=== PATIENT | female | born 1985 | race Two or more races ===

== ENCOUNTER 2020-08-14 16:03 | Emergency (ER) | payer OTHER ==
[~2020-08-14] VITALS: Ht 165.1 cm; Wt 83.9 kg
[2020-08-14] MEDS ORDERED: CLEOCIN HCL300 MG PO (20:25)
[2020-08-14] MEDS ORDERED: INTESTINEX680 M1 PO (20:25)
[2020-08-14] MEDS ORDERED: NASAL MIST126 ML NASAL ×2 (20:26→20:27)
[2020-08-14] MEDS ORDERED: NASAL MIST126 ML (20:28)
== END 2020-08-14 21:16 | disposition home or self-care (01) ==
LOC: ER 16:03
DX: L03.316 Cellulitis of umbilicus (principal)

== ENCOUNTER 2022-05-07 10:05 | Emergency (ER) | payer OTHER ==
[~2022-05-07] VITALS: Ht 165.1 cm; Wt 83.0 kg
[~2022-05-07 10:05] MED LIST: CLEOCIN HCL300 MG PO; INTESTINEX680 M1 PO; NASAL MIST126 ML; NASAL MIST126 ML NASAL
[2022-05-07] MEDS ORDERED: SULFAMETHOXAZOL20 ML PO (10:45)
[2022-05-07] MEDS ORDERED: MUPIROCIN15 GM TOP (10:46)
[2022-05-07] MEDS ORDERED: HIBICLENS118 ML TOP (15:24)
[2022-05-07] MEDS ORDERED: CENTANY30 GM TOP (15:24)
== END 2022-05-07 15:31 | disposition home or self-care (01) ==
LOC: ER 10:05
DX: L03.316 Cellulitis of umbilicus (principal); Z88.1 Allergy status to other antibiotic agents

== ENCOUNTER 2022-07-08 20:12 | Emergency (ER) | payer OTHER ==
[~2022-07-08] VITALS: Ht 165.1 cm; Wt 84.8 kg
[~2022-07-08 20:12] MED LIST changes: +CENTANY30 GM TOP; +HIBICLENS118 ML TOP; +MUPIROCIN15 GM TOP; +SULFAMETHOXAZOL20 ML PO
[2022-07-08] MEDS ORDERED: TOPAMAX50 MG PO (20:26)
[2022-07-08] MEDS ORDERED: ADIPEX-P37.5 MG PO (20:27)
== END 2022-07-08 22:22 | disposition home or self-care (01) ==
LOC: ER 20:12
DX: R20.2 Paresthesia of skin (principal); Z88.2 Allergy status to sulfonamides; M50.023 Cervical disc disorder at C6-C7 level with myelopathy

== ENCOUNTER → 2024-08-03 | Emergency (ER) | payer OTHER ==
[~2024-08-03] VITALS: Ht 165.1 cm; Wt 99.8 kg
[~2024-08-03] MED LIST changes: +ADIPEX-P37.5 MG PO; +COZAAR25 MG PO; +NORFLEX100MG PO; +ORPHENADRINE CITRATE 30 MG/ML AMPUL IM ONE; +TOPAMAX50 MG PO
[2024-08-03 10:53] LABS: BASO % 0.8 % (0.1-1.2); EOS # 0.27 (0.04-0.54); EOS % 3.2 % (0.7-7.0); HEMATOCRIT 42.5 % (34.1-44.9); HEMOGLOBIN 13.6 g/dL (11.2-15.7); LYMPH # 2.44 (1.18-3.74); LYMPH % 28.8 % (19.3-53.1); MEAN CORPUSCULAR HEMOGLOBIN 27.2 pg (25.6-32.2); MONO # 0.52 (0.24-0.82); MONO % 6.1 % (4.7-12.5); NEUT # 5.15 (1.56-6.13); NEUT % 60.7 % (34.0-71.1); PLATELET COUNT 369 K/uL (163-369); RED CELL DISTRIBUTION WIDTH 12.8 % (11.6-14.4)
== END | disposition home or self-care (01) ==
LOC: ER 07:32
PROVIDERS: General Practice
DX: R07.89 Other chest pain (principal); Z88.1 Allergy status to other antibiotic agents